=== PATIENT | female | born 1985 | race Caucasian/White ===

== ENCOUNTER 2018-05-08 12:59 | Inpatient (IN) | payer MEDICAID ==
[2018-05-08 13:23] LABS: ADD MAN DIFF? NO
[2018-05-08 13:26] LABS: BASOPHIL # 0.1 10^3/ul (0.0-0.1); BASOPHILS % 0.5 % (0.0-2.0); EOSINOPHILS # 1.1 10^3/ul (0.0-0.5); EOSINOPHILS % 8.8 % (0.0-7.0); HEMOGLOBIN 14.1 g/dl (12.0-16.0); LYMPHOCYTES # 4.1 10^3/ul (0.8-2.9); LYMPHOCYTES % 32.3 % (15.0-51.0); MEAN CORPUSCULAR HEMOGLOBIN 30.6 pg (29.0-33.0); MEAN CORPUSCULAR HGB CONC 34.4 g/dl (32.0-37.0); MEAN CORPUSCULAR VOLUME 88.9 fl (82.0-101.0); MEAN PLATELET VOLUME 12.3 fl (7.4-10.4); MONOCYTE # 0.8 10^3/ul (0.3-0.9); NEUTROPHIL # 6.6 10^3/ul (1.6-7.5); NEUTROPHILS % 51.7 % (39.0-77.0); PLATELET COUNT 177 10^3/UL (140-415); RED BLOOD COUNT 4.61 10^6/ul (4.20-5.40); RED CELL DISTRIBUTION WIDTH 13.2 % (11.5-14.5)
[2018-05-08 13:26] LABS: WHITE BLOOD COUNT 12.7 10^3/ul (4.8-10.8)
[2018-05-08 13:35] LABS: ADD UMIC NO; UR ASCORBIC ACID NEGATIVE (NEGATIVE); UR BILIRUBIN (Dip) NEGATIVE (NEGATIVE); UR BLOOD (Dip) NEGATIVE (NEGATIVE); UR CLARITY CLEAR (CLEAR); UR COLOR STRAW (YELLOW); UR GLUCOSE (Dip) NEGATIVE (NEGATIVE); UR KETONES (Dip) NEGATIVE (NEGATIVE); UR LEUKOCYTE ESTERASE (Dip) NEGATIVE Leu/ul (NEGATIVE); UR NITRITE (Dip) NEGATIVE (NEGATIVE); UR SPECIFIC GRAVITY (Dip) 1.003 (1.003-1.030); UR TOTAL PROTEIN (Dip) NEGATIVE (NEGATIVE); UR UROBILINOGEN (Dip) NEGATIVE (NEGATIVE)
[2018-05-08 13:46] LABS: ALANINE AMINOTRANSFERASE 113 IU/L (13-69); ALBUMIN 3.5 g/dl (3.3-4.9); ALBUMIN/GLOBULIN RATIO 1.06; ALKALINE PHOSPHATASE 140 IU/L (42-121); ANION GAP 11 (5-13); ASPARTATE AMINO TRANSFERASE 119 IU/L (15-46); BLOOD UREA NITROGEN 16 mg/dl (7-20); CALCIUM 9.6 mg/dl (8.4-10.2); CARBON DIOXIDE 19 mmol/L (21-31); CHLORIDE 109 mmol/L (97-110); CREATININE 0.92 mg/dl (0.44-1.00); Estimated GFR > 60 mL/min (>60); GLUCOSE 84 mg/dl (70-220); POTASSIUM 4.2 mmol/L (3.5-5.1); SODIUM 139 mmol/L (135-144); TOTAL PROTEIN 6.8 g/dl (6.1-8.1); URIC ACID 8.1 mg/dl (3.1-7.9)
[2018-05-08 13:58] LABS: INR 0.91; PROTIME 12.4 Sec (11.9-14.9)
[2018-05-08 13:59] LABS: PARTIAL THROMBOPLASTIN TIME 28.6 Sec (23.0-35.0)
[2018-05-08] MEDS ORDERED: LIDOCAINE 1% (MPF) 30 ML INJ INJ (14:30)
[2018-05-08] MEDS ORDERED: CARBOPROST 250 MCG INJ IM ×2 (14:30→23:30)
[2018-05-08] MEDS ORDERED: METHYLERGONOVINE 0.2 MG INJ IM ×2 (14:30→23:30)
[2018-05-08] MEDS ORDERED: OXYTOCIN 30 UNITS/LR 500 ML IV ×5 (14:30→23:30)
[2018-05-08] MEDS ORDERED: MISOPROSTOL 200 MCG TAB PR ×2 (14:30→23:30)
[2018-05-08] MEDS ORDERED: BUTORPHANOL 2 MG INJ IV (14:30)
[2018-05-08] MEDS: AMPICILLIN 2 GM/NS (PMX) 100 ML IV (14:30)
[2018-05-08 16:01] LABS: PARTIAL THROMBOPLASTIN TIME 28.8 Sec (23.0-35.0)
[2018-05-08 16:04] LABS: HEPATITIS B SURFACE ANTIGEN NEGATIVE (NEGATIVE)
[2018-05-08] MEDS: LACTATED RINGER'S 1,000 ML IV ×2 (16:19→23:19)
[2018-05-08] MEDS ORDERED: MAGNESIUM SULFATE 20 GM/500 ML 500 ML IV (16:58)
[2018-05-08] MEDS ORDERED: MAGNESIUM SULFATE 2 GM/50 ML 50 ML IVPB (17:00)
[2018-05-08] MEDS: MAGNESIUM SULFATE 4 GM/100 ML 100 ML IVPB (17:09)
[2018-05-08] MEDS: MAGNESIUM SULFATE 20 GM/500 ML 500 ML IV ×2 (17:35→23:19)
[2018-05-08] MEDS ORDERED: CEFAZOLIN 2 GM/50 ML (PMX) 50 ML IVPB ×2 (18:08→23:30)
[2018-05-08] MEDS ORDERED: AMPICILLIN 1 GM/NS (PMX) 50 ML IV (18:30)
[2018-05-08] MEDS ORDERED: morphine SULFATE/PF (10 MG/10 ML) INJ (19:21)
[2018-05-08] MEDS ORDERED: METOCLOPRAMIDE 10 MG INJ (19:21)
[2018-05-08] MEDS ORDERED: OXYTOCIN 10 UNIT INJ ×2 (19:21→19:22)
[2018-05-08] MEDS ORDERED: ONDANSETRON 4 MG INJ (19:21)
[2018-05-08] MEDS ORDERED: EPHEDrine 25 MG/5 ML SYG ×2 (19:22→20:45)
[2018-05-08] MEDS: CEFAZOLIN 2 GM/50 ML (PMX) 50 ML IVPB (19:30)
[2018-05-08 19:57] LABS: RAPID PLASMA REAGIN NONREACTIVE (NR)
[2018-05-08] MEDS ORDERED: NALOXONE (0.4 MG/ML) INJ IV (21:30)
[2018-05-08] MEDS ORDERED: EPHEDrine SULFATE 50 MG/5 ML SYG IV (21:30)
[2018-05-08] MEDS: morphine SULFATE/PF (10 MG/10 ML) INJ SPINAL (21:30)
[2018-05-08] MEDS ORDERED: ONDANSETRON 4 MG INJ IV (21:30)
[2018-05-08] MEDS ORDERED: DIPHENHYDRAMINE 50 MG INJ IV (21:30)
[2018-05-08] MEDS ORDERED: morphine 2 MG INJ IV ×2 (21:30)
[2018-05-08] MEDS: AZITHROMYCIN 500MG/NS (PMX) 250 ML IVPB (21:45)
[2018-05-08] MEDS: KETOROLAC 60 MG INJ IM (22:14)
[2018-05-08] MEDS ORDERED: CA GLUCONATE (GM) 10% 10ML INJ IV (23:30)
[2018-05-08] MEDS ORDERED: NA PHOSPHATE/BIPHOS 133 ML ENEMA PR (23:30)
[2018-05-09] MEDS: CEFAZOLIN 2 GM/50 ML (PMX) 50 ML IVPB ×3 (01:09→17:09)
[2018-05-09] MEDS: CLINDAMYCIN 300 MG CAP PO ×4 (06:00→17:46)
[2018-05-09 07:19] LABS: ADD MAN DIFF? NO
[2018-05-09 07:22] LABS: BASOPHIL # 0.1 10^3/ul (0.0-0.1); BASOPHILS % 0.3 % (0.0-2.0); EOSINOPHILS # 0.2 10^3/ul (0.0-0.5); EOSINOPHILS % 1.5 % (0.0-7.0); HEMATOCRIT 34.9 % (37.0-47.0); HEMOGLOBIN 11.7 g/dl (12.0-16.0); LYMPHOCYTES # 3.3 10^3/ul (0.8-2.9); LYMPHOCYTES % 20.6 % (15.0-51.0); MEAN CORPUSCULAR HEMOGLOBIN 30.2 pg (29.0-33.0); MEAN CORPUSCULAR HGB CONC 33.5 g/dl (32.0-37.0); MEAN CORPUSCULAR VOLUME 89.9 fl (82.0-101.0); MEAN PLATELET VOLUME 12.6 fl (7.4-10.4); MONOCYTE # 1.3 10^3/ul (0.3-0.9); MONOCYTES % 7.7 % (0.0-11.0); NEUTROPHIL # 11.2 10^3/ul (1.6-7.5); NEUTROPHILS % 69.3 % (39.0-77.0); PLATELET COUNT 170 10^3/UL (140-415); RED BLOOD COUNT 3.88 10^6/ul (4.20-5.40); RED CELL DISTRIBUTION WIDTH 13.6 % (11.5-14.5)
[2018-05-09 07:22] LABS: WHITE BLOOD COUNT 16.2 10^3/ul (4.8-10.8)
[2018-05-09 07:45] LABS: ALANINE AMINOTRANSFERASE 121 IU/L (13-69); ALBUMIN 2.8 g/dl (3.3-4.9); ALBUMIN/GLOBULIN RATIO 0.96; ALKALINE PHOSPHATASE 108 IU/L (42-121); ANION GAP 14 (5-13); ASPARTATE AMINO TRANSFERASE 127 IU/L (15-46); BLOOD UREA NITROGEN 14 mg/dl (7-20); CALCIUM 8.2 mg/dl (8.4-10.2); CARBON DIOXIDE 20 mmol/L (21-31); CHLORIDE 105 mmol/L (97-110); CREATININE 1.07 mg/dl (0.44-1.00); Estimated GFR 59 mL/min (>60); GLUCOSE 92 mg/dl (70-220); SODIUM 139 mmol/L (135-144); TOTAL PROTEIN 5.7 g/dl (6.1-8.1)
[2018-05-09 08:04] LABS: MAGNESIUM 5.5 mg/dl (1.7-2.5)
[2018-05-09] MEDS: LACTATED RINGER'S 1,000 ML IV (09:08)
[2018-05-09] MEDS: MAGNESIUM SULFATE 20 GM/500 ML 500 ML IV (09:11)
[2018-05-09] MEDS: BISACODYL 10 MG SUPP PR (10:00)
[2018-05-09 12:55] LABS: MAGNESIUM 5.5 mg/dl (1.7-2.5)
[2018-05-09] MEDS: KETOROLAC 30 MG INJ IV (15:29)
[2018-05-09] MEDS: LANOLIN HPA 1 PKT TOP (15:41)
[2018-05-09 19:17] LABS: MAGNESIUM 5.7 mg/dl (1.7-2.5)
[2018-05-09] MEDS: SENNA/DOCUSATE NA (8.6MG/50MG) TAB PO (21:15)
[2018-05-09] MEDS: IBUPROFEN 800 MG TAB PO (21:15)
[2018-05-10] MEDS: CLINDAMYCIN 300 MG CAP PO ×4 (00:01→17:51)
[2018-05-10] MEDS: HYDROCODONE/APAP (5/325) TAB PO (00:30)
[2018-05-10 07:25] LABS: ADD MAN DIFF? NO
[2018-05-10 07:27] LABS: BASOPHIL # 0.1 10^3/ul (0.0-0.1); BASOPHILS % 0.4 % (0.0-2.0); EOSINOPHILS # 0.7 10^3/ul (0.0-0.5); HEMATOCRIT 34.4 % (37.0-47.0); HEMOGLOBIN 11.4 g/dl (12.0-16.0); LYMPHOCYTES # 3.5 10^3/ul (0.8-2.9); LYMPHOCYTES % 27.5 % (15.0-51.0); MEAN CORPUSCULAR HEMOGLOBIN 30.3 pg (29.0-33.0); MEAN CORPUSCULAR HGB CONC 33.1 g/dl (32.0-37.0); MEAN CORPUSCULAR VOLUME 91.5 fl (82.0-101.0); MEAN PLATELET VOLUME 12.1 fl (7.4-10.4); MONOCYTE # 0.8 10^3/ul (0.3-0.9); MONOCYTES % 6.4 % (0.0-11.0); NEUTROPHIL # 7.8 10^3/ul (1.6-7.5); NEUTROPHILS % 60.2 % (39.0-77.0); PLATELET COUNT 184 10^3/UL (140-415); RED BLOOD COUNT 3.76 10^6/ul (4.20-5.40); RED CELL DISTRIBUTION WIDTH 13.8 % (11.5-14.5)
[2018-05-10 07:27] LABS: WHITE BLOOD COUNT 12.9 10^3/ul (4.8-10.8)
[2018-05-10] MEDS: IBUPROFEN 800 MG TAB PO ×3 (07:38→22:06)
[2018-05-10] MEDS: SENNA/DOCUSATE NA (8.6MG/50MG) TAB PO ×2 (09:31→21:23)
[2018-05-10] MEDS: OXYCODONE/ACETAMINOPHEN (5/325) TAB PO ×2 (11:47→20:00)
[2018-05-10] MEDS ORDERED: ACETAMINOPHEN 325 MG TAB PO ×2 (14:30→16:00)
[2018-05-11] MEDS: CLINDAMYCIN 300 MG CAP PO ×3 (01:32→12:00)
[2018-05-11] MEDS: OXYCODONE/ACETAMINOPHEN (5/325) TAB PO (04:17)
[2018-05-11] MEDS: IBUPROFEN 800 MG TAB PO (05:58)
[2018-05-11 08:34] LABS: ALANINE AMINOTRANSFERASE 61 IU/L (13-69); ALBUMIN/GLOBULIN RATIO 1.03; ALKALINE PHOSPHATASE 94 IU/L (42-121); ANION GAP 11 (5-13); ASPARTATE AMINO TRANSFERASE 68 IU/L (15-46); BLOOD UREA NITROGEN 9 mg/dl (7-20); CALCIUM 8.5 mg/dl (8.4-10.2); CARBON DIOXIDE 23 mmol/L (21-31); CHLORIDE 104 mmol/L (97-110); CREATININE 0.78 mg/dl (0.44-1.00); Estimated GFR > 60 mL/min (>60); GLUCOSE 68 mg/dl (70-220); POTASSIUM 4.2 mmol/L (3.5-5.1); SODIUM 138 mmol/L (135-144); TOTAL PROTEIN 5.9 g/dl (6.1-8.1)
[2018-05-11] MEDS: SENNA/DOCUSATE NA (8.6MG/50MG) TAB PO (08:55)
[2018-05-11] MEDS: MEASLES,MUMPS,RUBELLA VACCINE INJ SC* (09:29)
[2018-05-11] MEDS: DIPHTH/TET/ACEL PERTUSS (ADULT) 0.5 ML VIAL IM* (09:29)
== END 2018-05-11 12:50 | disposition home or self-care (01) | DRG 788 ==
LOC: OBT 12:59 → L-D 12:59 → OBT 14:37 → L-D 14:25 → PP1 23:18
PROC: 10D00Z1 Extraction of Products of Conception, Low, Open Approach (ICD-10-PCS; principal; 2018-05-08 19:15)
PROC: 3E033VJ Introduction of Other Hormone into Peripheral Vein, Percutaneous Approach (ICD-10-PCS; 2018-05-08 19:15)
DX: O13.4 Gestational [pregnancy-induced] hypertension without significant proteinuria, complicating childbirth (principal); Z3A.37 37 weeks gestation of pregnancy; Z37.0 Single live birth
CPT/HCPCS: 76818; 80053; 81003; 83735; 84560; 85025; 85384; 85610; 85730; 86592; 86850; 86900; 86901; 87340; 99464